=== PATIENT | female | born 1960 | race Two or more races ===

== ENCOUNTER → 2017-08-30 | Outpatient (CLI) | payer OTHER ==
[~2017-08-30] MED LIST: ALLERGY SHOTS SQ; CYAN1000P IM; ERGO1CAP30 PO; FERR200T PO; MULT-65 PO; ZOSTINJ SQ
[2017-08-30 08:42] LABS: AUTOMATED NEUTROPHIL # 3.7 TH/MM3 (1.8-7.7); BASOPHIL # 0.1 TH/MM3 (0-0.2); BASOPHIL % 1.2 % (0.0-2.0); EOSINOPHIL # 0.2 TH/MM3 (0-0.4); EOSINOPHIL % 2.3 % (0.0-4.0); HEMATOCRIT 29.1 % (35.0-46.0); HEMO FLAGS DIFF FINAL; LYMPH % 37.1 % (9.0-44.0); LYMPHOCYTE # 2.7 TH/MM3 (1.0-4.8); MEAN CELL VOLUME 67.1 FL (80.0-100.0); MEAN CORPUSCULAR HGB CONC 31.3 % (32.0-36.0); MONO % 8.6 % (0.0-8.0); NEUT % 50.8 % (16.0-70.0); PLATELET COUNT 308 TH/MM3 (150-450); RED BLOOD COUNT 4.33 MIL/MM3 (4.00-5.30); RED CELL DISTRIBUTION WIDTH 19.9 % (11.6-17.2); WHITE BLOOD COUNT 7.3 TH/MM3 (4.0-11.0)
[2017-08-30 09:19] LABS: ANION GAP 7 MEQ/L (5-15); AST (GOT) 24 U/L (15-37); BICARBONATE 24.6 MEQ/L (21.0-32.0); BLOOD UREA NITROGEN 13 MG/DL (7-18); CHLORIDE 108 MEQ/L (98-107); GLOMERULAR FILTRATION RATE 123 ML/MIN (>89); GLUCOSE,FASTING 75 MG/DL (74-99); POTASSIUM 4.5 MEQ/L (3.5-5.1); SODIUM (NA) 140 MEQ/L (136-145)
[2017-08-30 09:46] LABS: ALKALINE PHOSPHATASE 139 U/L (45-117); ALT (GPT) 25 U/L (10-53); FERRITIN 5 NG/ML (8-252); TOTAL BILIRUBIN ADULT 0.5 MG/DL (0.2-1.0); TRANSFERRIN IRON PROFILE 381 MG/DL (200-360)
== END ==
LOC: CLAB 06:47
PROVIDERS: ATTEND Nurse Practitioner Family
DX: D50.8 Other iron deficiency anemias (principal); Z98.890 Other specified postprocedural states; E07.9 Disorder of thyroid, unspecified; Z00.00 Encounter for general adult medical examination without abnormal findings
CPT/HCPCS: 36415; 80053; 82306; 82607; 82728; 82746; 83540; 83550; 84443; 85025; 86803